=== PATIENT | male | born 1955 | race Caucasian/White ===

== ENCOUNTER 2020-09-21 09:44 | Emergency (ER) | payer MEDICARE, SELFPAY ==
--- NOTE | ~2020-09-21 | XR_ITS ---
EXAMINATION: XR FINGER, RIGHT CLINICAL INFORMATION: Laceration with table saw. COMPARISON: None TECHNIQUE: 3 views of the right middle finger. FINDINGS: There is dorsal laceration of soft tissue and bone mid segment distal phalanx third digit with moderate soft tissue swelling. No additional bony or joint abnormality seen. XR/XR finger RT min 2V IMPRESSION: Dorsal laceration of soft tissue and bone mid segment distal phalanx third digit with moderate soft tissue swelling.
[2020-09-21 09:54] VITALS: BP 142/97; PULSE 87; RESP 16; TEMP 36.7; O2SAT 97; BMI 33.6
--- NOTE | 2020-09-21 10:07 | ED_ITS ---
HPI - Wound/Laceration General Chief Complaint: Wound/Laceration Stated Complaint: finger injury with table saw Time Seen by Provider: 09/21/20 10:07 History of Present Illness HPI narrative: Patient complains of right 3rd finger laceration from a table saw, denies numbness, weakness or tingling, denies any other injury Related Data Previous Rx's Medication Instructions Recorded cephalexin 500 mg PO QID 7 Days #28 tab 09/21/20 hydrocodone-acetaminophen 1 tab PO Q6H PRN #10 tab 09/21/20 hydrocodone-acetaminophen 1 tab PO Q6H PRN #10 tab 09/21/20 hydrocodone-acetaminophen 1 tab PO Q6H PRN #10 tab 09/21/20 Allergies Allergy/AdvReac Type Severity Reaction Status Date / Time Penicillins Allergy Hives Verified 09/23/20 12:00 Review of Systems Review of Systems: Positive for laceration and pain to right 3rd finger Negative no fever no chills no dizziness no weakness no fainting no numbness weakness or tingling no other injury Yes all other systems are reviewed and are negative [facility] Past Medical History Source: nursing notes reviewed Medical History Asthma High cholesterol HTN (hypertension) Social History Social History (Updated 09/23/20 @ 12:02 by NEELIMA Sloan) Alcohol intake: never Smoking Status: Unknown if ever smoked Current occupational status: employed Current occupation: right handed Gender identity: male Physical Exam Vital Signs: Vital Signs: Last Vital Signs Temp 98.1 F 09/21/20 09:54 Pulse 87 09/21/20 09:54 Resp 16 09/21/20 09:54 BP 142/97 H 09/21/20 09:54 Pulse Ox 97 09/21/20 09:54 Body Mass Index 33.6 General appearance no acute distress The head is normocephalic atraumatic Neck is supple and nontender Respiratory no distress Extremities the right index finger has a 2 cm laceration on the distal phalanx below the nail bed, sensation seems to be intact, there was weakness on flexion of the D IP joint, there was tenderness, other extremities normal Skin no rash Neuro no motor or sensory deficits Course Course Course Narrative: Right 2nd finger laceration is cleansed and irrigated with normal saline Anesthesia 6 cc of 1% lidocaine digital block No foreign bodies identified Suture repair with 5 0 nylon suture 7 sutures were placed, wound was closed and sterile dressing and finger splint applied X-ray showed a tuft fracture As I could not get full flexion at this time in the D IP joint I contacted orthopedic physician assistant professor of physics who said they could see patient in the office next week and the patient will follow with Orthopedics, prophylactic antibiotics were started Discharge Plan Discharge Clinical Impression: Laceration, Open fracture Patient Disposition: Home, Self-Care Additional Instructions: X-ray showed the finger tip was broken so we are putting you on antibiotics to prevent infection Because you are not bending the finger normally at the last joint, I am not certain if you have injured a flexor tendon Follow with hand specialist for recheck and to confirm normal tendon function within 2-3 days This was discussed with orthopedic physician assistant professor of physics Vidya Burden Return to the ER any time for redness, pain, swelling, any sign of infection or any worse condition or concerns We recommend a recheck either with primary doctor or here or at the orthopedist in 3 days Prescriptions: New hydrocodone-acetaminophen 5-325 mg tablet 1 tab PO Q6H PRN (Reason: pain) Qty: 10 RF: 0 hydrocodone-acetaminophen 5-325 mg tablet 1 tab PO Q6H PRN (Reason: pain) Qty: 10 RF: 0 hydrocodone-acetaminophen 5-325 mg tablet 1 tab PO Q6H PRN (Reason: pain) Qty: 10 RF: 0 cephalexin 500 mg tablet 500 mg PO QID 7 Days Qty: 28 RF: 0 Referrals: Tonia Santana MD [Physician] - 2 days (Open fracture right 3rd finger with decreased strength on flexion at PIP joint, possible partial flexor tendon injury) Stand Alone Forms: Work/School Release Interventions: ED Discharge Assessment Last Done: 09/21/20 11:50 Discharge Date/Time: 09/21/20 11:52
[2020-09-21] MEDS: Diphth,Pertus(ACell),Tet Adult 0.5 ML SYRINGE IM (10:30)
[2020-09-21] MEDS: cephALEXin 500 MG CAPSULE PO (10:30)
[2020-09-21] MEDS: Lidocaine HCl 1 % MPF 5 ML VIAL SUBCUT ×2 (10:35)
--- NOTE | 2020-09-21 11:46 | PC.NURSE ---
KONRAD PEARL CONSULTED WITH [facility] KONRAD DYE RE: POC, PT TO F/U IN OFFICE
== END 2020-09-21 11:52 | disposition home or self-care (01) ==
PROVIDERS: Emergency Provider Emergency Medicine Emergency Medical Services; PCP Internal Medicine
DX: S61.210A Laceration without foreign body of right index finger without damage to nail, initial encounter (principal); S62.600A Fracture of unspecified phalanx of right index finger, initial encounter for closed fracture; M79.641 Pain in right hand; W31.2XXA Contact with powered woodworking and forming machines, initial encounter; Y93.9 Activity, unspecified; Y92.9 Unspecified place or not applicable; Y99.9 Unspecified external cause status
CPT/HCPCS: 12001; 73140; 90471; 90715; 99284

== ENCOUNTER 2020-09-23 10:51 | Outpatient (REF) | payer MEDICARE, SELFPAY ==
--- NOTE | ~2020-09-23 | XR_ITS ---
EXAMINATION: XR HAND, RIGHT CLINICAL INFORMATION: Right hand pain. COMPARISON: Finger study of 09/21/2020. TECHNIQUE: PA, lateral, and oblique views of the right hand. FINDINGS: There is again noted to be an essentially nondisplaced fracture of major fracture fragments involving the right third distal phalanx which does not appear to cross the distal interphalangeal joint. Soft tissue swelling seen about the dorsum of the finger with what appears to be a laceration. There are a few 1 mm faint densities present which may represent small fracture fragments or very small foreign bodies. No dislocation is evident. XR/XR hand RT min 3V IMPRESSION: No significant change in alignment of right third distal phalanx fracture with question bone fragments or small radial opaque foreign bodies about the dorsum of the fracture site.
== END 2020-09-23 10:52 | disposition home or self-care (01) ==
LOC: HO.HOSX 10:51
PROVIDERS: PCP Internal Medicine; Visit Provider Orthopaedic Surgery
DX: S62.632B Displaced fracture of distal phalanx of right middle finger, initial encounter for open fracture (principal)
CPT/HCPCS: 26750; 73130; 99202

== ENCOUNTER 2020-10-01 10:50 | Outpatient (REF) | payer MEDICARE, SELFPAY ==
--- NOTE | ~2020-10-01 | XR_ITS ---
EXAMINATION: XR HAND, RIGHT CLINICAL INFORMATION: Injury 3rd finger distal phalanx. Follow-up. COMPARISON: Radiographs right 3rd finger 09/23/2020, 09/21/2020 TECHNIQUE: PA, lateral, and oblique views of the right hand. FINDINGS: The comminuted fracture mid shaft 3rd finger distal phalanx is unchanged in alignment. Again, there are some punctate ossific densities in the dorsal soft tissues. There is no interval bony destructive process or periostitis or gas in the soft tissues. No new fracture or dislocation. There is no acute bony abnormality seen in the remainder of the right hand. The ulnar variance is neutral. There are degenerative changes 5th finger DIP joint. XR/XR hand RT min 3V IMPRESSION: Comminuted fracture right 3rd distal phalanx unchanged in alignment. No bony destructive process.
== END 2020-10-01 10:51 | disposition home or self-care (01) ==
LOC: HO.HOSX 10:50
PROVIDERS: PCP Internal Medicine; Visit Provider Orthopaedic Surgery
DX: S62.632D Displaced fracture of distal phalanx of right middle finger, subsequent encounter for fracture with routine healing (principal)
CPT/HCPCS: 73130; 99212

== ENCOUNTER → 2020-10-07 13:03 | Outpatient (BNVA) | payer MEDICARE, SELFPAY | PROVIDERS: PCP Internal Medicine; Visit Provider Orthopaedic Surgery | DX: S62.632D Displaced fracture of distal phalanx of right middle finger, subsequent encounter for fracture with routine healing (principal) | CPT/HCPCS: 99212; Q3014 ==

== ENCOUNTER 2020-10-22 13:51 | Outpatient (REF) | payer MEDICARE, SELFPAY ==
--- NOTE | ~2020-10-22 | XR_ITS ---
EXAMINATION: XR HAND, RIGHT CLINICAL INFORMATION: Fracture follow up. COMPARISON: Most recent right hand radiographs dated 10/01/2020. TECHNIQUE: PA, lateral, and oblique views of the right hand. FINDINGS: Mildly displaced fracture redemonstrated at the 3rd distal phalanx in unchanged anatomic alignment. No new fracture or dislocation. No osseous erosion. XR/XR hand RT min 3V IMPRESSION: Distal 3rd phalangeal fracture in unchanged anatomic alignment.
== END 2020-10-22 13:52 | disposition home or self-care (01) ==
LOC: HO.HOSX 13:51
PROVIDERS: Visit Provider Orthopaedic Surgery
DX: S62.632D Displaced fracture of distal phalanx of right middle finger, subsequent encounter for fracture with routine healing (principal)
CPT/HCPCS: 73130; 99212

== ENCOUNTER 2021-12-26 13:56 | Emergency (ER) | payer MEDICARE, SELFPAY ==
[2021-12-26 14:28] VITALS: BP 132/69; PULSE 95; RESP 22; O2SAT 94; BMI 30.9
[2021-12-26] MEDS: diphenhydrAMINE HCL 25 MG TABLET 50 MG PO (14:42)
[2021-12-26] MEDS: Famotidine 20 MG TABLET PO (14:42)
[2021-12-26] MEDS: predniSONE 20 MG TABLET 60 MG PO (14:42)
--- NOTE | 2021-12-26 15:32 | ED.ALLEREA ---
HPI - Allergic Reaction General Chief complaint: Allergic Reaction Stated complaint: bee sting/redness/burning sensation Time Seen by Provider: 12/26/21 14:30 History of Present Illness HPI narrative: Patient complains of developing an itchy rash soon after he got a bee sting about an hour ago, but he never had difficulty breathing or swallowing and denies any facial swelling or throat swelling Related Data Previous Rx's Medication Instructions Recorded cephalexin 500 mg tablet 500 mg PO QID 7 days #28 tabs 09/21/20 hydrocodone 5 mg-acetaminophen 325 1 tab PO Q6H PRN pain #10 tabs 09/21/20 mg tablet hydrocodone 5 mg-acetaminophen 325 1 tab PO Q6H PRN pain #10 tabs 09/21/20 mg tablet hydrocodone 5 mg-acetaminophen 325 1 tab PO Q6H PRN pain #10 tabs 09/21/20 mg tablet cetirizine 10 mg capsule 10 mg PO DAILY PRN allergy 12/26/21 symptoms #14 caps epinephrine 0.3 mg/0.3 mL 0.3 mg (0.3 mL) IM ONCE 12/26/21 injection, auto-injector Anaphylactic reaction #2 ea prednisone 20 mg tablet 60 mg PO DAILY 2 days #6 tabs 12/26/21 Allergies Allergy/AdvReac Type Severity Reaction Status Date / Time Penicillins Allergy Hives Verified 10/22/20 14:07 Review of Systems Review of Systems: Positive for rash after bee sting Negatives are no dizziness no weakness no fainting no feeling faint no headache no neck pain no chest pain no shortness of breath no difficulty speaking no difficulty swallowing denies any throat swelling or any swelling of lips or tongue, no vomiting Yes all other systems are reviewed and are negative PMF Past Medical History Source: nursing notes reviewed Medical History Asthma High cholesterol HTN (hypertension) Social History Social History Alcohol intake: never Advance Directives: No Advance Directives Information Provided: No Current occupational status: employed Current occupation: right handed Gender identity: Male Physical Exam ED Vital Signs: Vital Signs - 24 hr 12/26/21 14:28 Pulse Rate 95 Respiratory Rate 22 H Blood Pressure 132/69 Pulse Oximetry 94 Oxygen Delivery Method Room Air BMI result Body Mass Index 30.9 General appearance no acute distress Eyes no redness or discharge Nose no congestion The pharynx no swelling of lips tongue or uvula, mucous membranes are moist, voice is normal, no drooling Neck is supple The chest is clear to auscultation with full symmetric equal breath sounds Heart no murmur Abdomen soft nontender Extremities full range of motion x4 Skin diffuse urticarial rash Course Course Course Narrative: Patient with fairly abrupt onset of hives soon after he got a bee sting but never had any other symptoms no anaphylaxis no throat swelling no fainting no chest pain or shortness of breath was given Benadryl in the ER as well as a steroid and observed for an hour with significant resolution of rash and no other symptoms and was discharged breathing and speaking easily in normally and very improved from arrival Discharge Plan Discharge Clinical Impression: Bee sting, Hives Patient Disposition: Home, Self-Care Additional Instructions: Take cetirizine once a day for 5 days It is okay at night to take Benadryl if needed for itch or rash We wrote for 2 more days of prednisone to suppress inflammation Most important, because you got hives so quickly from this bee sting we are worried the next reaction may be even worse so we wrote for EpiPen to be used if you ever get a quick dangerous reaction to a bee sting You should carry a with you when you are outdoors in case it is needed There are videos on you to that will demonstrate how to use the product Follow with your doctor to decide if you would need any treatment for bee sting allergy Prescriptions: New epinephrine 0.3 mg/0.3 mL auto-injector 0.3 mg IM ONCE Qty: 2 0RF prednisone 20 mg tablet 60 mg PO DAILY 2 Days Qty: 6 0RF cetirizine 10 mg capsule 10 mg PO DAILY PRN (Reason: allergy symptoms) Qty: 14 0RF No Action hydrocodone-acetaminophen 5-325 mg tablet 1 tab PO Q6H PRN (Reason: pain) Qty: 10 0RF hydrocodone-acetaminophen 5-325 mg tablet 1 tab PO Q6H PRN (Reason: pain) Qty: 10 0RF hydrocodone-acetaminophen 5-325 mg tablet 1 tab PO Q6H PRN (Reason: pain) Qty: 10 0RF cephalexin 500 mg tablet 500 mg PO QID 7 Days Qty: 28 0RF
[2021-12-26] MEDS: Loratadine 10 MG TABLET PO (15:56)
[2021-12-26 16:08] VITALS: PULSE 71; RESP 16; O2SAT 98
== END 2021-12-26 16:10 | disposition home or self-care (01) ==
PROVIDERS: Emergency Provider Student in an Organized Health Care Education/Training Program
DX: T63.441A Toxic effect of venom of bees, accidental (unintentional), initial encounter (principal); L50.9 Urticaria, unspecified; Y92.9 Unspecified place or not applicable
CPT/HCPCS: 99283; Q0163

== ENCOUNTER → 2021-12-30 13:37 | Outpatient (BNVA) | payer MEDICARE, SELFPAY | PROVIDERS: PCP Internal Medicine; Visit Provider Urology | DX: N40.1 Benign prostatic hyperplasia with lower urinary tract symptoms (principal); N13.8 Other obstructive and reflux uropathy; R35.1 Nocturia; R39.12 Poor urinary stream | CPT/HCPCS: 99202 ==